=== PATIENT | female | born 1995 | race Caucasian/White ===

== ENCOUNTER 2018-04-06 20:04 | Emergency (ER) | payer MEDICAID, OTHER ==
[~2018-04-06] VITALS: Ht 157.5 cm; Wt 74.8 kg
[2018-04-06 20:11] VITALS: BP 117/77
[2018-04-06] MEDS ORDERED: ONDANSETRON 4 MG/2 ML VIAL IVP ONE (21:25)
[2018-04-06] MEDS ORDERED: NACL 0.9% 1,000 ML IV ONE (21:25)
[2018-04-06 22:13] VITALS: BP 108/68
== END 2018-04-06 22:10 | disposition home or self-care (01) ==
LOC: MED 20:04
DX: K22.6 Gastro-esophageal laceration-hemorrhage syndrome (principal)
CPT/HCPCS: 96361; 96374; 99284; J2405; J7030